=== PATIENT | male | born 1995 | race Hispanic/Latino ===

== ENCOUNTER 2022-05-07 18:48 | Emergency (ER) | payer OTHER ==
[2022-05-07] MEDS ORDERED: Lidocaine 1% (PF) 30 ML VIAL ONE (19:29)
[2022-05-07] MEDS ORDERED: Ketorolac Tromethamine 60 MG/2 ML VIAL ONE (19:44)
[2022-05-07] MEDS ORDERED: Ketorolac Tromethamine 30 MG/ML VIAL ONE (19:44)
[2022-05-07] MEDS ORDERED: Cephalexin 250 MG CAP ONE (20:32)
== END 2022-05-07 21:00 ==
LOC: NAV ERS 18:48
DX: S03.2XXA Dislocation of tooth, initial encounter (principal); S01.511A Laceration without foreign body of lip, initial encounter; Y04.0XXA Assault by unarmed brawl or fight, initial encounter
CPT/HCPCS: 12011; 96372; J1885; J2001